=== PATIENT | female | born 1965 | race Caucasian/White ===

== ENCOUNTER → 2016-10-24 | Outpatient (CLI) | payer BC ==
[~2016-10-24] MED LIST: AMLODIPINE BESYL5 MG PO; CATAPRES0.1 MG PO; FLEXERIL10 MG PO; IMITREX50 MG PO; INDERAL20 MG PO; NAPROSYN500 MG PO; OXYCODONE HCL5 MG PO; SIMVASTATIN80 M1 PO; VALIUM2 MG PO
== END | disposition home or self-care (01) ==
LOC: CDC 10:06
DX: I10 Essential (primary) hypertension (principal)
CPT/HCPCS: 93000